=== PATIENT | male | born 1985 | race Caucasian/White ===

== ENCOUNTER 2019-11-10 16:01 | Emergency (ER) | payer BC, SELFPAY ==
[2019-11-10 16:10] VITALS: BP 129/91; PULSE 100; RESP 20; TEMP 37; O2SAT 98
--- NOTE | 2019-11-10 16:36 | PCDIET ---
1610 prior to triage staff/provider spoke briefly with pt who was informed he would be seen and transferred to er for evaluation of left arm numbness. states he does not want to be seen here but would go directly to er, girlfriend to drive. states he does not want to pay cost of both places. observed pleasant, talkative. no apparent distress or additional neuro deficits. left at this time. steady on feet.
--- NOTE | 2019-11-10 16:41 | PCDIET ---
Addendum entered by Desire Verduzco RN 11/10/19 17:11: nursing note Original Note: 1610 prior to triage staff/provider spoke briefly with pt who was informed he would be seen and transferred to er for further evaluation of left arm numbness. states he did not want to be seen at this time and that his girlfriend would drive him directly to er. states he does not want to pay cost of both places. observed talkative, pleasant, no additional neuro deficits, steady on feet. left at this time.
== END 2019-11-10 16:10 | disposition left against medical advice (07) ==
PROVIDERS: Emergency Provider Nurse Practitioner Family; PCP Family Medicine
DX: Z53.21 Procedure and treatment not carried out due to patient leaving prior to being seen by health care provider (principal)
CPT/HCPCS: 99199